=== PATIENT | male | born 1980 | race Caucasian/White ===

== ENCOUNTER 2018-12-16 12:25 | Emergency (ER) | payer OTHER ==
[2018-12-16] MEDS ORDERED: Sodium Chloride 0.9% 10 ML Syringe FLUSH PRN (12:39)
--- NOTE | 2018-12-16 12:46 | EDM.PDOC ---
ED HPI GENERAL MEDICAL PROBLEM - General Chief Complaint: Neurological Problem Stated Complaint: DIZZY/LIGHTHEADED AND OFF BALANCE Time Seen by Provider: 12/16/18 12:46 - History of Present Illness INITIAL COMMENTS - FREE TEXT/NARRATIVE: 38-year-old male presents emergency room with dizziness and lightheadedness. Patient had gradual onset of worsening dizziness. He was driving when this started me thought maybe the wind picked up a little bit and was moving his camper around a little bit over time this progressively got worse and after an hour or so he got out of his truck and he could hardly stand up because of lightheadedness and dizziness. The patient back into his truck and things gradually improved he was able to driving here on his own. Patient is passing through from [place] to visit a friend to go [place]. Patient denies any recent illnesses he's had no recent fevers or chills. He has not noticed any numbness tingling or weakness in any of his extremities. Just a sense of being off balance or dizziness looking to the left seems to trigger this. He has not noticed any ringing or buzzing in his ears. - Related Data Allergies Allergy/AdvReac Type Severity Reaction Status Date / Time No Known Allergies Allergy Verified 12/16/18 12:41 Home Meds: Home Meds . [No Known Home Meds] 12/16/18 [History] Past Medical History Musculoskeletal History: Reports: Other (See Below) Other Musculoskeletal History: plate to right ankles; pins removed from toes Social & Family History - Tobacco Use Smoking Status *Q: Current Every Day Smoker Years of Tobacco use: 20 Packs/Tins Daily: 0.5 - Caffeine Use Caffeine Use: Reports: Coffee, Soda - Recreational Drug Use Recreational Drug Use: No ED ROS GENERAL - Review of Systems Review Of Systems: See Below Constitutional: Reports: No Symptoms HEENT: Reports: Vertigo. Denies: No Symptoms, Ear Discharge, Ear Pain, Eye Discharge, Glasses, Hearing Loss, Rhinitis, Sinus Problem, Throat Pain, Throat Swelling Respiratory: Reports: No Symptoms Cardiovascular: Reports: No Symptoms GI/Abdominal: Reports: No Symptoms : Reports: No Symptoms Musculoskeletal: Reports: No Symptoms Neurological: Reports: Dizziness. Denies: Headache, Numbness, Pre-Existing Deficit, Syncope, Tingling, Difficulty Walking (Other than the dizziness), Weakness Psychiatric: Reports: No Symptoms Hematologic/Lymphatic: Reports: No Symptoms ED EXAM, NEURO - Physical Exam Exam: See Below Exam Limited By: No Limitations General Appearance: Alert, No Apparent Distress, Other (He is doing much better at this time) Eye Exam: Bilateral Eye: EOMI, Normal Inspection, PERRL Ears: Normal External Exam, Normal Canal, Hearing Grossly Normal, Normal TMs Nose: Normal Inspection, Normal Mucosa, No Blood Throat/Mouth: Normal Inspection, Normal Lips, Normal Teeth, Normal Gums, Normal Oropharynx, Normal Voice, No Airway Compromise Head Exam: Atraumatic, Normocephalic Neck: Normal Inspection, Supple, Non-Tender, Full Range of Motion. No: Lymphadenopathy (L), Lymphadenopathy (R) Respiratory/Chest: No Respiratory Distress, Lungs Clear, Normal Breath Sounds Cardiovascular: Regular Rate, Rhythm, No Edema, No Murmur GI/Abdominal: Normal Bowel Sounds, Soft, Non-Tender Neurological: Alert, Normal Mood/Affect, CN II-XII Intact, Oriented x 3, Other ( Hallpike's maneuver cannot trigger his symptoms at this point no nystagmus noted. Cranial nerves II through XII grossly intact all muscle groups the upper lower extremities are equal and appropriate bilaterally cerebellar testing appears to be normal) Back Exam: Normal Inspection. No: CVA Tenderness (L), CVA Tenderness (R) Extremities: Normal Inspection, Non-Tender, Pedal Edema Psychiatric: Normal Affect, Normal Mood Skin Exam: Warm, Dry, Intact EKG INTERPRETATION EKG Date: 12/16/18 Rhythm: NSR Raymond: Normal P-Wave: Present QRS: Normal ST-T: Normal QT: Normal Comparison: NA - No Prior EKG EKG Interpretation Comments: Normal EKG Course - Vital Signs Last Recorded V/S: Last Vital Signs Temp 36.2 C 12/16/18 12:37 Pulse 66 12/16/18 12:37 Resp 20 12/16/18 12:37 BP 124/94 H 12/16/18 12:37 Pulse Ox 100 12/16/18 12:37 - Orders/Labs/Meds Labs: Laboratory Tests 12/16/18 12/16/18 Range/Units 12:38 12:38 WBC 5.48 (4.23-9.07) K/mm3 RBC 5.01 (4.63-6.08) M/mm3 Hgb 15.8 (13.7-17.5) gm/L Hct 45.3 (40.1-51.0) % MCV 90.4 (79.0-92.2) fl MCH 31.5 (25.7-32.2) pg MCHC 34.9 (32.2-35.5) g/dl RDW Std Deviation 40.6 (35.1-43.9) fL Plt Count 218 (163-337) K/mm3 MPV 8.7 L (9.4-12.3) fl Neut % (Auto) 64.5 (34.0-67.9) % Lymph % (Auto) 20.4 L (21.8-53.1) % Miller % (Auto) 11.7 (5.3-12.2) % Eos % (Auto) 2.7 (0.8-7.0) Baso % (Auto) 0.5 (0.1-1.2) % Neut # (Auto) 3.53 (1.78-5.38) K/mm3 Lymph # (Auto) 1.12 L (1.32-3.57) K/mm3 Miller # (Auto) 0.64 (0.30-0.82) K/mm3 Eos # (Auto) 0.15 (0.04-0.54) K/mm3 Baso # (Auto) 0.03 (0.01-0.08) K/mm3 Sodium 140 (136-145) mEq/L Potassium 4.1 (3.5-5.1) mEq/L Chloride 102 (98-107) mEq/L Carbon Dioxide 25 (21-32) mEq/L Anion Gap 17.1 H (5-15) BUN 18 (7-18) mg/dL Creatinine 0.9 (0.7-1.3) mg/dL Est Cr Clr Drug Dosing 102.51 mL/min Estimated GFR (MDRD) > 60 (>60) mL/min BUN/Creatinine Ratio 20.0 H (14-18) Glucose 103 (74-106) mg/dL Calcium 9.4 (8.5-10.1) mg/dL Total Bilirubin 0.5 (0.2-1.0) mg/dL AST 21 (15-37) U/L ALT 31 (16-63) U/L Alkaline Phosphatase 66 (46-116) U/L Total Protein 7.6 (6.4-8.2) g/dl Albumin 4.4 (3.4-5.0) g/dl Globulin 3.2 gm/dL Albumin/Globulin Ratio 1.4 (1-2) Meds: Medications Discontinued Medications Generic Name Dose Route Start Last Admin Trade Name Lizet PRN Reason Stop Dose Admin Sodium Chloride 10 ml 12/16/18 12:39 12/16/18 12:55 Saline Flush FLUSH 10 ml ASDIRECTED PRN Administration Keep Vein Open - Re-Assessments/Exams Free Text/Narrative Re-Assessment/Exam: 12/16/18 16:46 The patient probably has vertigo uncertain of what the trigger is like him unable to precipitate it going through Hallpike's maneuver. His workup is otherwise unremarkable at this point the patient is from out of town the next step in his workup is getting a audiology evaluation done. Labs were unremarkable here CT is unremarkable EKG is normal. Patient agrees to follow-up with his regular physician who can get him scheduled for audiology evaluation. We did discuss treatment for the dizziness however this can lengthen the duration of the illness and the patient agrees on holding off on this this point. He will not look to the left fast as this seems to trigger his dizziness. Departure - Departure Time of Disposition: 16:49 Disposition: Home, Self-Care 01 Clinical Impression: Vertigo - Discharge Information Instructions: Vertigo, [id number] Referrals: PCP,Not In Area [Primary Care Provider] - Forms: ED Department Discharge Additional Instructions: Return to emergency room with any questions problems worsening symptoms. Use caution driving and use caution when the dizziness returns. Follow-up with your regular physician and have an audiology evaluation, this is the hearing evaluation we discussed.
--- NOTE | 2018-12-16 14:20 | CT ---
Head CT Technique: Multiple axial sections through the brain were obtained. Intravenous contrast was not utilized. Comparison: No prior intracranial imaging is available. Findings: Ventricles along with basal cisterns and sulci over convexities are within normal limits for the patient's age. No abnormal parenchymal densities are seen. No evidence of intracranial hemorrhage. No midline shift or mass effect is seen. Bone window settings were reviewed which show the visualized paranasal sinuses to show nothing acute. Mastoid sinuses are clear. No acute calvarial abnormality is seen. Impression: 1. Nothing acute is appreciated on noncontrast head CT exam. Diagnostic code #1
== END 2018-12-16 17:06 | disposition home or self-care (01) ==
LOC: JD.ED 12:25
DX: R42 Dizziness and giddiness (principal); F17.210 Nicotine dependence, cigarettes, uncomplicated
CPT/HCPCS: 36415; 70450; 70450-26; 80053; 85025; 99284-25